=== PATIENT | female | born 1945 | race Caucasian/White ===

== ENCOUNTER 2022-05-09 08:13 | Outpatient (CLI) | payer MEDICARE | END 2022-05-09 08:14 | disposition home or self-care (01) | LOC: BURRAD 08:13 | PROVIDERS: ATTEND Physician Assistant | DX: M54.50 Low back pain, unspecified (principal); M54.6 Pain in thoracic spine; S22.089D Unspecified fracture of T11-T12 vertebra, subsequent encounter for fracture with routine healing | CPT/HCPCS: 72070; 72100 ==

== ENCOUNTER 2025-07-21 08:03 | Outpatient (CLI) | payer MEDICARE ==
[2025-07-21 08:56] LABS: Calc. Creatinine Clearance 0.0 mL/min (70-130)
[2025-07-21] MEDS ORDERED: Iopamidol 370 76% 100 ML VIAL ONE (11:01)
== END 2025-07-21 08:04 | disposition home or self-care (01) ==
LOC: BURCT 08:03
PROVIDERS: ATTEND Family Medicine
DX: Z01.818 Encounter for other preprocedural examination (principal); R59.1 Generalized enlarged lymph nodes
CPT/HCPCS: 36415; 70491; 82565; Q9967